=== PATIENT | female | born 1980 | race Caucasian/White ===

== ENCOUNTER 2017-05-26 17:08 | Outpatient (CLI) | payer OTHER ==
--- NOTE | 2017-05-27 10:06 | XRAY Report ---
THREE VIEW RIGHT HAND: 05/26/2017 CLINICAL INDICATION: Persistent thumb pain, status post fall six to eight weeks ago. FINDINGS: AP, lateral, and oblique views of the right hand demonstrate no evidence of fracture or di slocation. The joint spaces are preserved. No radiopaque foreign body is seen in the soft tissues. IMPRESSION: NORMAL RIGHT HAND. JOB #: [id number] EXT JOB #:[id number]
== END 2017-05-26 17:09 | disposition home or self-care (01) ==
LOC: DI 17:08
PROVIDERS: ATTEND Physician Assistant
DX: M79.644 Pain in right finger(s) (principal)